=== PATIENT | female | born 1940 | race Caucasian/White ===

== ENCOUNTER 2019-03-07 10:19 | Outpatient (CLI) | payer OTHER ==
--- NOTE | 2019-03-07 11:10 | RAD ---
RADIOGRAPH CHEST 2 VIEWS: Date: 03/07/2019. Time: 10:33 a.m. HISTORY: A 78-year-old female with dyspnea. COMPARISON: 12/13/2018. FINDINGS: Multifocal bilateral calcified pleural plaque. Borderline or mild cardiomegaly without shaun pulmonary alveolar edema. No consolidation. No pleural effusion or pneumothorax. Atherosclerotic calcification and ectasia of thoracic aorta. Signs of previous CABG. Right axillary surgical clips. Additional surgical clips at right breast shadow. No interval change overall. IMPRESSION: 1. Borderline or mild cardiomegaly. 2. Chronic asbestos related pleural disease. 3. Evidence for coronary atherosclerotic disease. 4. No acute pulmonary findings. 5. Status post right mastectomy and right axillary lymph node dissection. 6. No interval change since 12/13/2018. JN [] POS: [facility]
== END 2019-03-07 10:20 | disposition home or self-care (01) ==
LOC: RAD 10:19
PROVIDERS: ATTEND Internal Medicine Critical Care Medicine
DX: R06.00 Dyspnea, unspecified (principal); I51.7 Cardiomegaly; I25.10 Atherosclerotic heart disease of native coronary artery without angina pectoris; J94.8 Other specified pleural conditions; Z90.11 Acquired absence of right breast and nipple
CPT/HCPCS: 71046